=== PATIENT | male | born 1940 | race Caucasian/White ===

== ENCOUNTER 2024-09-15 08:43 | Day surgery (SDC) | payer OTHER ==
[2024-09-10 11:15] LABS: BASOPHILS # (AUTO) 0.06 K/uL (0.00-0.20); BASOPHILS % (AUTO) 1.2 % (0.0-5.0); EOSINOPHILS % (AUTO) 5.9 % (0.0-8.0); HEMATOCRIT 37.6 % (42-54); IMMATURE GRANULOCYTE ABSOLUTE 0.04 K/uL (0-1); LYMPHOCYTES # (AUTO) 1.2 K/uL (1.0-4.8); MEAN CORPUSCULAR VOLUME 88.3 fL (79-99); MONOCYTES # (AUTO) 0.5 K/uL (0.1-1.0); MONOCYTES % (AUTO) 9.5 % (3.0-13.0); NEUTROPHILS % (AUTO) 58.6 % (40.0-77.0); PLATELET COUNT (AUTO) 127 K/uL (130-400); RED BLOOD CELL COUNT(AUTO) 4.26 MIL/uL (4.50-6.20); RED CELL DISTRIBUTION WIDTH 13.8 % (11.0-15.5); WHITE BLOOD COUNT (AUTO) 5.1 K/uL (4.8-10.8)
[2024-09-10 11:22] LABS: POTASSIUM 4.3 mmol/L (3.5-5.1)
[2024-09-10 11:37] LABS: INR 1.09 (0.85-1.15); PROTHROMBIN TIME 11.5 SEC (9.6-11.6)
[2024-09-10 11:39] LABS: PARTIAL THROMBOPLASTIN TIME 28.4 SEC (26.3-35.5)
[2024-09-10 11:46] VITALS: BP 103/56; PULSE 69; RESP 18; TEMP 97.3
--- NOTE | 2024-09-11 08:55 | EKG ---
[facility] Test Date: 2024-09-10 Test Time: 11:06:07 Pat Name: GAUTAM CASTRO Department: [facility] Room: Gender: [place] Slabs Sawyer: [id number] : 1940 Requested By: KURT COLON Order Number: [id number] Reading MD: Bryanna Bright Measurements Intervals [place] Rate: 63 P: 0 TN: 238 QRS: -73 QRSD: 121 T: 88 QT: 490 QTc: 503 Interpretive Statements A sensed with intermittently Ventricular-paced complexes No previous ECG available for comparison Electronically Signed On 09-11-2024 13:36:40 CDT by Bryanna Bright Please click the below link to view image of tracing.
[~2024-09-15] VITALS: Ht 175.3 cm; Wt 80.9 kg
[2024-09-15] VITALS (8 sets, daily range): BP systolic 125–142; BP diastolic 67–81; PULSE 60–61; RESP 13–18; TEMP 97.4–98
[~2024-09-15 08:43] MED LIST: AMLO-257 PO; APIX5TAB PO; ATOR40TA71 PO; FAMO20TA8 PO; FERR-82 PO; METO50TA18 PO; PREG100C56 PO; TAMS-55 PO; VALS80TA30 PO; ZOLP-685 PO
[2024-09-15] MEDS: 0.9%NACL 1000ML 1,000 ML IV SCH (09:46)
[2024-09-15] MEDS ORDERED: LIDOCAINE HCL 1% MDV 50ML VIAL ONE (11:52)
[2024-09-15] MEDS ORDERED: SODIUM BICARB 50MEQ 50ML VIAL 50 ML ONE (11:52)
[2024-09-15] MEDS ORDERED: BUPIvacaine/PF 0.25% 30ML VIAL IJ ONE (11:53)
[2024-09-15] MEDS ORDERED: IOHEXOL-350 50ML VIAL IV ONE (11:53)
[2024-09-15] MEDS ORDERED: ceFAZolin SODIUM 1 GM VIAL ONE (11:53)
[2024-09-15] MEDS ORDERED: FENTanyl CITRate PF 50 MCG/1 ML 2ML VIAL ONE (12:14)
[2024-09-15] MEDS ORDERED: MIDAZOLAM HCL 1 MG/ML 2ML VIAL ONE ×2 (12:14→12:56)
[2024-09-15] MEDS ORDERED: BACITRACIN 1 EACH PACKET TP ONE (13:24)
[2024-09-15] MEDS ORDERED: TRAM50TA4 PO (13:41)
--- NOTE | 2024-09-15 13:52 | NUR ---
PATIENT BACK FROM [facility] [employer] S/P GENERATOR REPLACEMENT. DRESSING TO LEFT UPPER CHEST INTACT WITH MINIMAL DRAINAGE NOTED. SURROUNDING AREA SOFT, NON-TENDER, NO HEMATOMA NOTED.
[2024-09-15] MEDS ORDERED: acetaMINOPHEN WITH coDEINE 1 TAB TAB PO PRN ×3 (14:00)
[2024-09-15] MEDS ORDERED: acetaMINOPHEN 500 MG TABLET PO PRN (14:00)
--- NOTE | 2024-09-15 15:50 | NUR ---
DRESSING TO LEFT UPPER CHEST WITH MINIMAL DRY DRAINAGE. INSTRUCTED PATIENT AND FAMILY AT BEDSIDE REGARDING DAILY DRESSING CHANGES. EDUCATED REGARDING SIGNS/SYMPTOMS OF INFECTION TO REPORT TO MD. PATIENT AND JEFRY GEORGE VERBALIZED UNDERSTANDING.
== END 2024-09-15 16:00 | disposition home or self-care (01) ==
LOC: DAH 08:43
PROVIDERS: ATTEND Internal Medicine Cardiovascular Disease
DX: Z45.010 Encounter for checking and testing of cardiac pacemaker pulse generator [battery] (principal); I48.21 Permanent atrial fibrillation; I12.9 Hypertensive chronic kidney disease with stage 1 through stage 4 chronic kidney disease, or unspecified chronic kidney disease; N18.9 Chronic kidney disease, unspecified; E78.5 Hyperlipidemia, unspecified; G47.33 Obstructive sleep apnea (adult) (pediatric); Z90.49 Acquired absence of other specified parts of digestive tract; Z86.73 Personal history of transient ischemic attack (TIA), and cerebral infarction without residual deficits; Z79.01 Long term (current) use of anticoagulants; Z79.899 Other long term (current) drug therapy
CPT/HCPCS: 80048; 85025; 85610; 85730; 36415; 93005; 33228; 99157 ×4; 99156; C1785; J3010; J0690; J7030; J0665; J3490 ×2; J2250 ×2; A4215; A4222; A4221; A4663; A4216; A4606; A4223 ×3; Q9967